=== PATIENT | female | born 1995 | race Caucasian/White ===

== ENCOUNTER 2017-07-05 08:50 | Emergency (ER) | payer SELFPAY ==
--- NOTE | 2017-07-05 09:17 | EDM.PDOC ---
ED HPI GENERAL MEDICAL PROBLEM - General Chief Complaint: Abdominal Pain Stated Complaint: R SIDE PAIN Time Seen by Provider: 07/05/17 09:11 Source of Information: Reports: Patient History Limitations: Reports: No Limitations - History of Present Illness INITIAL COMMENTS - FREE TEXT/NARRATIVE: 22-year-old female presents the ED with recurrent right lower quadrant abdominal pain off and on for the better part of a week. Pain tends to be sharp and stabbing in much worse this morning and more intense than it has been. It is confined primarily to the right lower quadrant does not radiate through to her back. No associated genitourinary complaints. Patient has known polycystic ovarian disease but did have a period about 3 weeks ago with a 4 day withdrawal bleed. She does not use any form of control. She is 1 para 1. No other abdominal surgeries. Denies fever chills and appetite remains good. She reports her bowel function is normal without blood. Onset: Other (Intermittent right lower quadrant abdominal pain for the last week just worse today) Onset Date: 06/28/17 Duration: Day(s):, Getting Worse, Intermittent, Waxing/Waning Location: Reports: Abdomen (Right lower quadrant of the abdomen) Quality: Reports: Sharp, Stabbing Severity: Moderate Improves with: Reports: None Worsens with: Reports: None Context: Denies: Activity, Exercise, Lifting, Sick Contact, Trauma, Other Associated Symptoms: Denies: Confusion, Chest Pain, Cough, cough w sputum, Diaphoresis, Fever/Chills, Headaches, Loss of Appetite, Malaise, Nausea/Vomiting , Rash, Seizure, Shortness of Breath 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 : 1 Para: 1 Social & Family History - Living Situation & Occupation Living situation: Reports: Occupation: Employed ED ROS GENERAL - Review of Systems Review Of Systems: See Below Constitutional: Denies: Fever, Chills, Malaise, Weakness, Fatigue, Weight Loss HEENT: Reports: No Symptoms Respiratory: Reports: No Symptoms Cardiovascular: Reports: No Symptoms Endocrine: Reports: No Symptoms GI/Abdominal: Reports: Abdominal Pain : Reports: No Symptoms (See history of present illness) Musculoskeletal: Reports: No Symptoms Skin: Reports: No Symptoms Neurological: Reports: No Symptoms Psychiatric: Reports: No Symptoms Hematologic/Lymphatic: Reports: No Symptoms Immunologic: Reports: No Symptoms ED EXAM, GI/ABD - Physical Exam Exam: See Below Exam Limited By: No Limitations General Appearance: Alert, WD/WN, No Apparent Distress Eyes: Bilateral: Normal Appearance Respiratory/Chest: No Respiratory Distress, Lungs Clear, Normal Breath Sounds Cardiovascular: Normal Peripheral Pulses, Regular Rate, Rhythm, No Edema, No Gallop, No Murmur GI/Abdominal Exam: Soft (Hypoactive bowel sounds throughout.), No Organomegaly, No Distention, No Mass, Pelvis Stable, Tender (Mild tenderness in right lower quadrant over McBurney's point and lower down in the pelvis.), Abnormal Bowel Sounds. No: Guarding ( No guarding or rebound.), Rigid, Rebound Back Exam: Normal Inspection, Full Range of Motion. No: CVA Tenderness (L), CVA Tenderness (R) Extremities: Normal Inspection, Normal Range of Motion, Non-Tender, No Pedal Edema, Normal Capillary Refill Neurological: Alert, Oriented, CN II-XII Intact, Normal Cognition, Normal Gait Psychiatric: Normal Affect, Normal Mood Skin Exam: Warm, Dry, Intact, Normal Color, No Rash Course - Vital Signs Last Recorded V/S: Last Vital Signs Temp 36.4 C 07/05/17 09:07 Pulse 96 07/05/17 09:07 Resp 18 07/05/17 09:07 BP 145/93 H 07/05/17 09:07 Pulse Ox 98 07/05/17 09:07 - Orders/Labs/Meds Orders: Active Orders 24 hr Category Date Time Status Abdomen 1V Upright [CR] Stat Exams 07/05/17 09:16 Taken CBC WITH MANUAL DIFF [HEME] Stat Lab 07/05/17 09:30 Results Labs: Laboratory Tests 07/05/17 07/05/17 07/05/17 Range/Units 09:20 09:30 09:30 WBC 7.90 (3.98-10.04) K/mm3 RBC 4.50 (3.98-5.22) M/mm3 Hgb 13.2 (11.2-15.7) gm/L Hct 39.9 (34.1-44.9) % MCV 88.7 (79.4-94.8) fl MCH 29.3 (25.6-32.2) pg MCHC 33.1 (32.2-35.5) g/dl RDW Std Deviation 41.7 (36.4-46.3) fL Plt Count 402 H (182-369) K/mm3 MPV 8.7 L (9.4-12.3) fl Sodium 139 (136-145) mEq/L Potassium 3.9 (3.5-5.1) mEq/L Chloride 107 (98-107) mEq/L Carbon Dioxide 25 (21-32) mEq/L Anion Gap 10.9 (5-15) BUN 10 (7-18) mg/dL Creatinine 0.8 (0.55-1.02) mg/dL Est Cr Clr Drug Dosing 90.47 mL/min Estimated GFR (MDRD) > 60 (>60) mL/min BUN/Creatinine Ratio 12.5 L (14-18) Glucose 93 (74-106) mg/dL Calcium 9.1 (8.5-10.1) mg/dL Total Bilirubin 0.3 (0.2-1.0) mg/dL AST 15 (15-37) U/L ALT 23 (14-59) U/L Alkaline Phosphatase 47 (46-116) U/L C-Reactive Protein 0.3 (<1.0) mg/dL Total Protein 7.1 (6.4-8.2) g/dl Albumin 3.5 (3.4-5.0) g/dl Globulin 3.6 gm/dL Albumin/Globulin Ratio 1.0 (1-2) HCG, Qual (NEGATIVE) Urine Color Yellow (Yellow) Urine Appearance Clear (Clear) Urine pH 5.5 (5.0-8.0) Ur Specific Robbins 1.025 (1.005-1.030) Urine Protein Negative (Negative) Urine Glucose (UA) Negative (Negative) Urine Ketones Negative (Negative) Urine Occult Blood Negative (Negative) Urine Nitrite Negative (Negative) Urine Bilirubin Negative (Negative) Urine Urobilinogen 0.2 (0.2-1.0) Ur Leukocyte Esterase Trace H (Negative) Urine RBC 0-5 (0-5) /hpf Urine WBC 5-10 H (0-5) /hpf Ur Epithelial Cells 5-10 H (0-5) /hpf Amorphous Sediment Few H (NOT SEEN) /hpf Urine Bacteria Few (FEW) /hpf Urine Mucus Not seen (FEW) /hpf 07/05/17 Range/Units 09:30 WBC (3.98-10.04) K/mm3 RBC (3.98-5.22) M/mm3 Hgb (11.2-15.7) gm/L Hct (34.1-44.9) % MCV (79.4-94.8) fl MCH (25.6-32.2) pg MCHC (32.2-35.5) g/dl RDW Std Deviation (36.4-46.3) fL Plt Count (182-369) K/mm3 MPV (9.4-12.3) fl Sodium (136-145) mEq/L Potassium (3.5-5.1) mEq/L Chloride (98-107) mEq/L Carbon Dioxide (21-32) mEq/L Anion Gap (5-15) BUN (7-18) mg/dL Creatinine (0.55-1.02) mg/dL Est Cr Clr Drug Dosing mL/min Estimated GFR (MDRD) (>60) mL/min BUN/Creatinine Ratio (14-18) Glucose (74-106) mg/dL Calcium (8.5-10.1) mg/dL Total Bilirubin (0.2-1.0) mg/dL AST (15-37) U/L ALT (14-59) U/L Alkaline Phosphatase (46-116) U/L C-Reactive Protein (<1.0) mg/dL Total Protein (6.4-8.2) g/dl Albumin (3.4-5.0) g/dl Globulin gm/dL Albumin/Globulin Ratio (1-2) HCG, Qual Negative (NEGATIVE) Urine Color (Yellow) Urine Appearance (Clear) Urine pH (5.0-8.0) Ur Specific Robbins (1.005-1.030) Urine Protein (Negative) Urine Glucose (UA) (Negative) Urine Ketones (Negative) Urine Occult Blood (Negative) Urine Nitrite (Negative) Urine Bilirubin (Negative) Urine Urobilinogen (0.2-1.0) Ur Leukocyte Esterase (Negative) Urine RBC (0-5) /hpf Urine WBC (0-5) /hpf Ur Epithelial Cells (0-5) /hpf Amorphous Sediment (NOT SEEN) /hpf Urine Bacteria (FEW) /hpf Urine Mucus (FEW) /hpf Meds: Medications Discontinued Medications Generic Name Dose Route Start Last Admin Trade Name Milly PRN Reason Stop Dose Admin Magnesium Citrate 240 ml 07/05/17 10:31 Citrate Of Magnesia PO 07/05/17 10:32 ONETIME ONE - Radiology Interpretation Free Text/Narrative:: 22-year-old female presents to the ED for evaluation of intermittent right lower quadrant abdominal pain for the better part of a week. Pain is became quite intense this morning and stopped in her tracks and made it impossible to take to work. She therefore came to the ED. No associated nausea vomiting. Bowel function has been normal. She has polycystic ovarian disease and did have a withdrawal period about 3-1/2 weeks ago. She does not use any form of control. Examination reveals essentially a benign abdomen with some tenderness in the right lower quadrant elicited without guarding or rebound tenderness. Suspect ovarian source of pain. Plan KUB routine labs to include a beta hCG and CRP and a urinalysis. - Re-Assessments/Exams Free Text/Narrative Re-Assessment/Exam: 07/05/17 10:36 white count showed a normal diet 7.90. Differential pending. Hemoglobin is good at 13.2. Platelets are mildly elevated at 402,000. Chemistry was completely normal including a CRP of less than 0.3. Urinalysis showed 5-10+ 5 per field with trace leukocyte esterase. Patient has absolutely no signs or or symptoms of urinary tract infection. I therefore opted not to treat her but I will have a urine culture done. The KUB shows extensive stool throughout the entire right hemicolon particularly in the cecum which is low lying down in the pelvis. I'm therefore going to place her on Citroma 8 ounces by mouth mixed with 5 ounces of juice of choice by mouth once to provide bowel cleanse. She will follow-up if not markedly improved after bowel cleanse. Departure - Departure Time of Disposition: 10:32 Disposition: Home, Self-Care 01 Condition: Fair Clinical Impression: Constipation by delayed colonic transit Abdominal pain Qualifiers: Abdominal location: right lower quadrant Qualified Code(s): R10.31 - Right lower quadrant pain - Discharge Information Referrals: PCP,None [Primary Care Provider] - Forms: ED Department Discharge, ED Return to Work/School Form Additional Instructions: Evaluation in the emergency room today in regards to intermittent right lower quadrant abdominal pain for the last week. Pain became much worse than it has been this morning with strong strong sharp and colicky pain. Examination reveals mild tenderness in the right lower quadrant but no signs of peritonitis to suggest appendicitis. An x-ray of the abdomen reveals increased stool throughout the entire right hemicolon particularly in the cecum the very bottom of the right colon which is down in the right pelvis. Strongly suspect this is the source of your pain with small bowel contractility try and push the stool towards the left side. It is abnormal to have formed of stool in the right colon is usually the ways product that enters the colon is liquid in form. For whatever reason the fluids have been taken away from the stool prematurely causing it to harden in the right colon causing a plug. Lab tests were all within normal limits and urine showed a few pus cells but no sign of bacterial or other signs of infection. Treatment is therefore Citroma or magnesium citrate. Suggest 8 ounces with 5 ounces of juice of choice taken by mouth once this morning. This will start to work in 1-2 hours and will usually make the bowels work for 5 times often ending in some mild diarrhea. Her up ear pain. If for any reason you're still having pain or discomfort in the right lower quadrant in 12-24 hours you should be reviewed. - My Orders Last 24 Hours: My Active Orders 07/05/17 09:16 Abdomen 1V Upright [CR] Stat 07/05/17 09:30 CBC WITH MANUAL DIFF [HEME] Stat - Assessment/Plan Last 24 Hours: My Active Orders 07/05/17 09:16 Abdomen 1V Upright [CR] Stat 07/05/17 09:30 CBC WITH MANUAL DIFF [HEME] Stat
[2017-07-05] MEDS ORDERED: Magnesium Citrate Solution 296 ML Bottle PO ONE (10:31)
--- NOTE | 2017-07-05 11:18 | CR ---
Abdomen: Upright view of the abdomen was obtained. Comparison: No previous study. Bowel gas pattern is normal. No abnormal calcifications or soft tissue abnormality is seen. Bony structures are unremarkable. Slight increased stool is noted within the colon. Impression: 1. Slight increased stool within the colon. 2. Upright abdominal x-ray is otherwise unremarkable. Diagnostic code #2
== END 2017-07-05 10:53 | disposition home or self-care (01) ==
LOC: JD.ED 08:50
DX: K59.01 Slow transit constipation (principal)
CPT/HCPCS: 36415; 74000; 80053; 81001; 84703; 85025; 86140; 87086; 99284; A9270

== ENCOUNTER 2017-09-12 17:24 | Emergency (ER) | payer SELFPAY ==
[2017-09-12] MEDS ORDERED: Ondansetron 4 MG/2 ML SDV IVPUSH ONE (17:53)
[2017-09-12] MEDS ORDERED: Famotidine 20 MG/2 ML SDV IVPUSH ONE (17:53)
[2017-09-12] MEDS ORDERED: Sodium Chloride 0.9% 10 ML Syringe FLUSH PRN ×2 (17:53→20:13)
[2017-09-12] MEDS ORDERED: Sodium Chloride 0.9% 1,000 ML IV SCH (18:00)
--- NOTE | 2017-09-12 18:59 | EDM.PDOC ---
<Vinay Dumont Yamilex - Last Filed: 09/12/17 19:14> ED HPI GENERAL MEDICAL PROBLEM - General Chief Complaint: Gastrointestinal Problem Stated Complaint: NAUSEA,STOMACH PAIN Time Seen by Provider: 09/12/17 17:41 Source of Information: Reports: Patient, RN Notes Reviewed - History of Present Illness INITIAL COMMENTS - FREE TEXT/NARRATIVE: 22-year-old female comes in with upper abdominal discomfort, nausea. Did last evening about 20 hours ago. She is continued with nausea, occasional upper abdominal cramps since that time. There has been no vomiting but she has frequently felt very close to vomiting. No diarrhea. No appetite today so not eating as usual. Drinking some but not a lot of fluids. No cough, congestion, fever or sore throat. 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 Denies: Fever HEENT: Denies: Rhinitis, Sinus Problem, Throat Pain Respiratory: Denies: Shortness of Breath, Cough Cardiovascular: Denies: Chest Pain GI/Abdominal: Reports: Abdominal Pain (Mild intermittent upper abdominal cramps) , Nausea. Denies: Diarrhea, Vomiting Musculoskeletal: Reports: Other Skin: Denies: Rash (Generalized achiness) Neurological: Reports: Dizziness (Mild) ED EXAM, GI/ABD - Physical Exam Exam: See Below General Appearance: Alert, No Apparent Distress Throat/Mouth: Normal Inspection Head: No: Facial Swelling Neck: Supple, Full Range of Motion Respiratory/Chest: No Respiratory Distress, Lungs Clear, Normal Breath Sounds Cardiovascular: Tachycardia GI/Abdominal Exam: Soft, Tender (Mild tenderness upper mid abdomen, abdomen otherwise soft and nontender). No: Guarding, Rebound Back Exam: No: CVA Tenderness (L), CVA Tenderness (R) Extremities: Normal Inspection, Normal Range of Motion. No: Leg Pain Neurological: Alert, Oriented, No Motor/Sensory Deficits Skin Exam: Warm, Dry, Normal Color Course - Vital Signs Last Recorded V/S: Last Vital Signs Temp 97.8 F 09/12/17 17:32 Pulse 119 H 09/12/17 17:32 Resp 16 09/12/17 17:32 BP 131/84 09/12/17 17:32 Pulse Ox 99 09/12/17 17:32 - Orders/Labs/Meds Orders: Active Orders 24 hr Category Date Time Status Peripheral IV Care [RC] . DIRECTED Care 09/12/17 17:53 Active Abdomen Pelvis w Cont [CT] Stat Exams 09/12/17 19:13 Taken Sodium Chloride 0.9% [Normal Saline] 1,000 ml Med 09/12/17 18:00 Active IV ONETIME Sodium Chloride 0.9% [Saline Flush] Med 09/12/17 17:53 Active 10 ml FLUSH ASDIRECTED PRN Sodium Chloride 0.9% [Saline Flush] Med 09/12/17 20:13 Active 10 ml FLUSH ONETIME PRN Peripheral IV Insertion Adult [OM.PC] Stat Oth 09/12/17 17:53 Ordered Medication Orders Sodium Chloride (Normal Saline) 1,000 mls @ 999 mls/hr IV ONETIME VIKKI Last Admin: 09/12/17 18:28 Dose: 999 mls/hr Sodium Chloride (Saline Flush) 10 ml FLUSH ASDIRECTED PRN PRN Reason: Keep Vein Open Last Admin: 09/12/17 18:34 Dose: 10 ml Sodium Chloride (Saline Flush) 10 ml FLUSH ONETIME PRN PRN Reason: IV FLUSH Last Admin: 09/12/17 20:23 Dose: 10 ml Labs: Laboratory Tests 09/12/17 09/12/17 09/12/17 Range/Units 18:18 18:18 18:18 WBC 12.08 H (3.98-10.04) K/mm3 RBC 4.85 (3.98-5.22) M/mm3 Hgb 13.9 (11.2-15.7) gm/L Hct 42.0 (34.1-44.9) % MCV 86.6 (79.4-94.8) fl MCH 28.7 (25.6-32.2) pg MCHC 33.1 (32.2-35.5) g/dl RDW Std Deviation 41.9 (36.4-46.3) fL Plt Count 382 H (182-369) K/mm3 MPV 8.8 L (9.4-12.3) fl Neut % (Auto) 79.4 H (34.0-71.1) % Lymph % (Auto) 12.5 L (19.3-51.7) % Conway % (Auto) 7.2 (4.7-12.5) % Eos % (Auto) 0.6 L (0.7-5.8) Baso % (Auto) 0.1 (0.1-1.2) % Neut # (Auto) 9.59 H (1.56-6.13) K/mm3 Lymph # (Auto) 1.51 (1.18-3.74) K/mm3 Conway # (Auto) 0.87 H (0.24-0.36) K/mm3 Eos # (Auto) 0.07 (0.04-0.36) K/mm3 Baso # (Auto) 0.01 (0.01-0.08) K/mm3 Sodium 137 (136-145) mEq/L Potassium 3.7 (3.5-5.1) mEq/L Chloride 103 (98-107) mEq/L Carbon Dioxide 22 (21-32) mEq/L Anion Gap 15.7 H (5-15) BUN 14 (7-18) mg/dL Creatinine 0.9 (0.55-1.02) mg/dL Est Cr Clr Drug Dosing 80.42 mL/min Estimated GFR (MDRD) > 60 (>60) mL/min BUN/Creatinine Ratio 15.6 (14-18) Glucose 88 (74-106) mg/dL Calcium 8.9 (8.5-10.1) mg/dL Total Bilirubin 0.8 (0.2-1.0) mg/dL AST 15 (15-37) U/L ALT 24 (14-59) U/L Alkaline Phosphatase 50 (46-116) U/L C-Reactive Protein 7.2 H* (<1.0) mg/dL Total Protein 7.3 (6.4-8.2) g/dl Albumin 3.6 (3.4-5.0) g/dl Globulin 3.7 gm/dL Albumin/Globulin Ratio 1.0 (1-2) Meds: Medications Generic Name Dose Route Start Last Admin Trade Name Freq PRN Reason Stop Dose Admin Sodium Chloride 1,000 mls @ 999 mls/hr 09/12/17 18:00 09/12/17 18:28 Normal Saline IV 999 mls/hr ONETIME VIKKI Administration Sodium Chloride 10 ml 09/12/17 17:53 09/12/17 18:34 Saline Flush FLUSH 10 ml ASDIRECTED PRN Administration Keep Vein Open Sodium Chloride 10 ml 09/12/17 20:13 09/12/17 20:23 Saline Flush FLUSH 10 ml ONETIME PRN Administration IV FLUSH Discontinued Medications Generic Name Dose Route Start Last Admin Trade Name Freq PRN Reason Stop Dose Admin Diatrizoate Meglum/Diatrizoate Sod 120 ml 09/12/17 20:13 09/12/17 20:23 Gastrografin 37% PO 09/12/17 20:14 90 ml ONETIME ONE Administration Famotidine 20 mg 09/12/17 17:53 09/12/17 18:34 Pepcid IVPUSH 09/12/17 17:54 20 mg ONETIME ONE Administration Iopamidol 150 ml 09/12/17 20:13 09/12/17 20:23 Isovue-300 (61%) IVPUSH 09/12/17 20:14 125 ml ONETIME ONE Administration Ondansetron HCl 4 mg 09/12/17 17:53 09/12/17 18:31 Zofran IVPUSH 09/12/17 17:54 4 mg ONETIME ONE Administration - Re-Assessments/Exams Free Text/Narrative Re-Assessment/Exam: 09/12/17 19:14. White blood count is come back mildly elevated at 12,000 with increased sakes. C-reactive protein moderately elevated at 7.2. She continues to have more tenderness upper mid abdomen but also moderate tenderness right lower quadrant. Therefore CT of abdomen pelvis with oral and IV contrast has been ordered. It is now after change of shift, this is going to take at least 2 hours for results so will transfer care to Dr. Dutton at this time. Departure - Departure Disposition: Home, Self-Care 01 Clinical Impression: Abdominal pain Qualifiers: Abdominal location: right lower quadrant Qualified Code(s): R10.31 - Right lower quadrant pain Gastritis Qualifiers: Gastritis type: unspecified gastritis Chronicity: acute Gastritis bleeding: without bleeding Qualified Code(s): K29.00 - Acute gastritis without bleeding - Discharge Information Prescriptions: Ondansetron [Zofran ODT] 4 mg PO Q6H PRN #20 tab.dis PRN Reason: Nausea\vomiting Referrals: PCP,None [Primary Care Provider] - Ela Marquez MD [Physician] - 1 Week Forms: ED Department Discharge Additional Instructions: Take pepcid daily for 1 week. You can buy that over the counter. Take the zofran every 6 hours as needed for nausea and vomiting. Drink plenty of fluids and advance your diet as tolerated. Please return if you are worse or follow up with Dr Marquez. <Stanton Dutton - Last Filed: 09/12/17 22:13> Course - Re-Assessments/Exams Free Text/Narrative Re-Assessment/Exam: 09/12/17 22:[address] Dumont. Her CT shows no acute findings. Normal appendix. Hepatic steatosis. She feels better. I feel this is some gastritis. I will get her on some zofran and pepcid. I will discharge her home. Departure - Departure Time of Disposition: 22:10 Condition: Good
[2017-09-12] MEDS ORDERED: Iopamidol 612 MG/ML 150 ML Bottle IVPUSH ONE (20:13)
[2017-09-12] MEDS ORDERED: Diatrizoate Meglumine/Diatrizoate Sodium 37% 120 ML Bottle PO ONE (20:13)
--- NOTE | 2017-09-13 08:01 | CT ---
CT abdomen and pelvis Technique: Multiple axial sections were obtained above the dome of the diaphragm inferiorly through the pubic symphysis. Intravenous and oral contrast was utilized. Delayed images were obtained through the bladder. Findings: Small portion of the visualized lung bases shows nothing acute. Mild fatty infiltration is seen within the liver. No focal abnormality is seen within the liver or spleen. Adrenal glands show no nodule. Pancreas is within normal limits. Gallbladder contains no calcified gallstones. Kidneys show symmetric contrast enhancement without hydronephrosis or mass. Aorta shows no aneurysmal dilatation. No retroperitoneal adenopathy or mesenteric abnormalities are seen. Small amount of free fluid seen within the pelvis which is likely physiologic. No pelvic mass or adenopathy is seen. Delayed images show contrast within the bladder. Bone window settings were reviewed which appear within normal limits for the patient's age. Incidental note of small fat-containing umbilical hernia. Appendix is seen and appears normal in size. Mild increased stool seen within the colon. Impression: 1. Incidental findings. Nothing acute is seen on CT study of the abdomen and pelvis. Diagnostic code #2 I agree with preliminary report issued by [employer] ([facility] preliminary report dictated on 09/12/17, 10:21 PM Central Time)
== END 2017-09-12 22:20 | disposition home or self-care (01) ==
LOC: JD.ED 17:24
DX: K29.00 Acute gastritis without bleeding (principal); F17.210 Nicotine dependence, cigarettes, uncomplicated
CPT/HCPCS: 36415; 74177; 80053; 85025; 86140; 96361; 96374; 96375; 99284; J2405; J7040; J7050; Q9963; Q9967